=== PATIENT | male | born 1955 | race Caucasian/White ===

== ENCOUNTER 2021-10-06 19:28 | Emergency (ER) | payer OTHER, SELFPAY ==
[2021-10-06 19:29] VITALS: BP 180/85; PULSE 90; RESP 16; TEMP 36.9; O2SAT 97; BMI 37.7
--- NOTE | 2021-10-06 19:50 | ED.VIS.GI ---
HPI HPI - GI History of Present Illness Chief Complaint: GI Bleed Detail of Chief Complaint: Rectal bleeding Informant: patient Abdominal Pain/Flank Pain Onset: Today and Hours Context: Gradual Onset Timing: Intermittent Nausea/Vomiting/Emesis GI Symptom: Negative for Nausea or Vomiting Diarrhea/Melena/Hematochezia GI Symptom: Positive for Hematochezia; Negative for Diarrhea or Melena Onset: Today Severity: Mild Associated Symptoms Associated Symptoms: Negative for Dysuria, Frequency, Hematuria or Urgency Narrative Narrative: 66-year-old male with.. No significant past medical history. Currently on no medications. He has had a partial colectomy in the past. Benign tumor. He has had hemorrhoids in the past. States today he noticed rectal bleeding when he was going to the toilet. He said there really was not any stool. Just drops of bright red blood in the toilet. Said this happened twice. He denies being lightheaded or dizzy. He is on no blood thinners. He has never had a GI bleed before. He denies any recent constipation. No melena. He denies being lightheaded or dizzy. States has been feeling well. Prior similar symptoms: No Recent Illness/Hospitalization: No PFSH PFSH Medical History no medical history no medical history Allergy/AdvReac Type Severity Reaction Status Date / Time No Known Allergies Allergy Verified 10/06/21 19:32 Social History Smoking Status: Never smoker ROS ROS ED ROS Narrative Denies any recent illness. Rectal bleeding today. Review of Systems ROS Unobtainable: Denies due to encephalopathy Constitutional Constitutional ED: Denies chills ENT ENT ED: Denies ear pain Cardiovascular Cardiovascular: Denies chest pain Respiratory/Chest Respiratory/Chest: Denies cough Gastrointestinal Gastrointestinal: Denies abdominal pain Genitourinary Genitourinary ED: Denies dysuria Musculoskeletal Musculoskeletal: Denies arthralgias Integumentary Denies abscess Neurologic Neurologic: Denies headache(s) Psychiatric Psychiatric: Denies anxiety Endocrine Endocrinology: Denies polydipsia Hematologic/Lymphatic Hematologic/Lymphatic: Denies easy bleeding Allergic/Immunologic Allergic/Immunologic ED: Denies mouth swelling EXAM Physical Exam Narrative Exam Narrative: 66-year-old male. No acute distress. Vital signs stable afebrile. H EENT exam unremarkable. Neck nontender. Lungs clear to auscultation. Heart regular rhythm no murmur. Abdomen soft nontender. Obese. Rectal exam nontender. 2 moderate sized external hemorrhoids. Currently nonthrombosed. Not tender. No active bleeding currently. No gross blood. Rectal exam no gross blood or masses. Moving all 4 extremities. Neurologically is awake and alert. Const Vital Signs: 10/06/21 19:29 Temperature 98.4 F Temperature Source Temporal Pulse Rate 90 Respiratory Rate 16 Blood Pressure 180/85 H Blood Pressure Mean 116 Pulse Ox 97 Oxygen Delivery Method Room Air Positive well nourished, well developed and obese; Negative for cachectic, contractures or unkempt General Appearance ED: well developed; Negative for unkempt, cachectic or contractures Nutritional Appearance: obese; Negative for cachectic HEENT Reports moist mucous membranes; Denies dry mucous membranes normocephalic and atraumatic; Negative for trauma or tenderness Mouth ED: No dry mucous membranes Mouth: No dry mucous membranes Eyes PERRL and EOMs intact bilaterally General Eye ED: Negative for pale conjunctiva Neck no lymphadenopathy, supple and no JVD General: Negative for tenderness Carotids: Negative for other Resp normal respiratory effort and clear to auscultation bilaterally Effort and Inspection: Negative for respiratory distress or retractions Auscultation: Negative for rales, rhonchi or wheezes Cardio regular rate, regular rhythm, S1 normal heart sound, S2 normal heart sound and no murmurs GI non-tender, non-distended and no masses Inspection: Negative for abdominal distention Auscultation: normoactive bowel sounds Palpation: soft; Negative for tender, guarding, rigid or hepatomegaly Back/Spine no CVA tenderness General Back: Negative for CVA tenderness Cervical Spine: Negative for cervical spine tenderness Thoracic Spine / Upper Back: Negative for thoracic spinal tenderness Lumbar Spine / Lower Back: Negative for lumbar spinal tenderness Extremity full ROM General Extremety ED: Negative for tenderness Neuro moves all extremities Sensorium / Orientation: alert, oriented to person, oriented to place and oriented to time; Negative for orientation impaired, confused, lethargic or stuporous Motor Exam: strength 5/5 throughout Psych mental status grossly normal Appearance: Negative for unkempt Attitude: No agitated Mood & Affect: Negative for depressed or anxious Skin No no wounds Skin Narrative: Chronic wound right lower leg. Lesions: no lesions Rashes: no rashes Trauma: Negative for abrasion Nails: Negative for discolored MDM MDM MDM Narrative Medical decision making narrative: 66-year-old male not on any anticoagulation with tender external hemorrhoids with rectal bleeding. CBC will be obtained. Clinically stable. Pt doing well at 9:00 p.m. will be discharged home with outpatient follow-up. Return if heavier bleeding or clots. Treated as rectal bleeding from hemorrhoids. Preparation H and warm soaks. Follow-up with surgery if not improving. Lab Data Attestation: I reviewed the patient's lab results. Lab results narrative: CBC is normal. BMP unremarkable. Gap = 7. Normal Bun and Creatinine. Labs: Laboratory Results - last 24 hr 10/06/21 10/06/21 19:57 19:57 WBC 8.9 RBC 4.77 Hgb 13.5 Hct 40.6 MCV 85.1 MCH 28.3 MCHC 33.3 RDW Std Deviation 42.6 RDW Coeff of Faisal 13.7 Plt Count 240 MPV 9.4 Sodium 141 Potassium 3.5 Chloride 108 H Carbon Dioxide 26.0 Anion Gap 7 BUN 13 Creatinine 0.97 Estim Creat Clear Calc 91.97 Est GFR (MDRD) Af Amer 100 Est GFR (MDRD) Non-Af 82 BUN/Creatinine Ratio 13.4 Glucose 133 H Calcium 8.7 Discharge Plan Triage Chief Complaint: GI Bleed ED Provider: Josue Elena Dx/Rx/DC Orders Clinical Impression: Bright red rectal bleeding, External hemorrhoids Instructions: Understanding Hemorrhoids, ED Lower GI Bleeding (Stable) Primary Care Provider: Torin Hastings Referrals: Torin Hastings DO [Primary Care Provider] - 1 Week if not improving Bertram Finley MD [STAFF PHYSICIAN] - As Needed Activity Restrictions/Additional Instructions: Suspect bleeding from external hemorrhoids. Hemorrhoid cream twice daily. Warm soaks. Follow up if not improving. Return if heavier bleeding. Disposition Disposition: Home, Self Care
[2021-10-06 20:05] LABS: Hematocrit 40.6 % (40-54); Hemoglobin 13.5 g/dL (13.0-16.5); Mean Corp Hgb Conc 33.3 g/dL (32-36); Mean Corpuscular Hgb 28.3 pg (27.0-32.0); Mean Corpuscular Volume 85.1 fL (80-94); Mean Platelet Vol. 9.4 fl (6.2-12.0); Platelet Count 240 K/mm3 (150-450); RBC Distribution Width CV 13.7 % (11.6-14.6); RBC Distribution Width SD 42.6 fl (35.1-43.9); Red Blood Count 4.77 M/mm3 (4.6-6.2); White Blood Count 8.9 K/mm3 (4.4-11.0)
[2021-10-06 20:33] LABS: Anion Gap 7 (5-15); BUN 13 mg/dL (7-18); BUN/Creat Ratio 13.4 RATIO (10-20); Calcium,Total 8.7 mg/dL (8.5-10.1); Chloride 108 mmol/L (98-107); Creatinine, Serum 0.97 mg/dL (0.70-1.30); EST Glomerular Filtration Rate 82 mL/min (>60); Est Glom Filt Rate - Afr Amer 100 mL/min (>60); Estimated Creatinine Clearance 91.97 ml/min; Glucose 133 mg/dL (74-106); Potassium 3.5 mmol/L (3.5-5.1); Sodium Level 141 mmol/L (136-145)
[2021-10-06 21:15] VITALS: PULSE 74; RESP 17; O2SAT 98
[2021-10-06 21:19] VITALS: BP 101/56; PULSE 74; RESP 17; O2SAT 93
== END 2021-10-06 21:16 | disposition home or self-care (01) ==
PROVIDERS: Emergency Provider Emergency Medicine; PCP Family Medicine; Visit Provider Emergency Medicine
DX: K64.4 Residual hemorrhoidal skin tags (principal); E66.9 Obesity, unspecified; Z90.49 Acquired absence of other specified parts of digestive tract
CPT/HCPCS: 80048; 85027; 99283; A4216